=== PATIENT | male | born 1965 ===

== ENCOUNTER 2018-09-03 20:20 | Emergency (ER) | payer BC, OTHER ==
[2018-09-03 20:30] VITALS: BP 156/91
--- NOTE | 2018-09-03 20:31 | EDM.PDOC ---
ED HPI GENERAL MEDICAL PROBLEM - General Chief Complaint: Chest Pain Stated Complaint: [facility] Time Seen by Provider: 09/03/18 20:25 Source of Information: Reports: Patient - History of Present Illness INITIAL COMMENTS - FREE TEXT/NARRATIVE: Patient arrives by ambulance from [place], [place] for chest pain that started yesterday. Patient states that it is sharp and aching in nature and radiates down his left arm. Also occasionally has numbness to his third fourth and fifth digits on the left. Patient states that he took-325 mg aspirin total today, the last one being approximately 1 hour ago. Patient states that when he had his pain got worse and he was up working throughout the day at work yesterday and this afternoon at work. This did improve with rest. Denies any associated diaphoresis, dyspnea or feeling of impending doom. Patient denies any heartburn or GI symptoms. Denies a history of hypertension or heart disease. Patient has alcoholic cirrhosis and a history of hepatitis C which was treated with antiviral medication, 2 negative viral tests after treatment. Follows with GI at medical clinic in [place]. Medications daily are ASA 325 mg, omeprazole, lactulose and folic acid. He does have an albuterol inhaler but reports using this very rarely. Left Shoulder Pain Score (Numeric/FACES): 2 - Related Data Allergies Allergy/AdvReac Type Severity Reaction Status Date / Time No Known Allergies Allergy Verified 09/03/18 20:30 Home Meds: Home Meds Aspirin 325 mg PO DAILY 05/26/15 [History] Folic Acid 1 mg PO DAILY 05/26/15 [History] Lactulose 15 ml PO DAILY 05/26/15 [History] Omeprazole 20 mg PO DAILY 05/26/15 [History] Thiamine HCl [Vitamin B-1] 1 tab PO DAILY 09/03/18 [History] Past Medical History Other HEENT History: Wears glasses ED ROS GENERAL - Review of Systems Review Of Systems: See Below Constitutional: Denies: Fever, Chills, Malaise, Weakness, Fatigue, Decreased Appetite HEENT: Reports: No Symptoms Respiratory: Reports: No Symptoms Cardiovascular: Reports: Chest Pain. Denies: Blood Pressure Problem, Edema, Syncope GI/Abdominal: Reports: No Symptoms, Other (History of hepatitis C) Musculoskeletal: Reports: Other Skin: Reports: No Symptoms Neurological: Reports: No Symptoms ED EXAM, GENERAL - Physical Exam Exam: See Below Exam Limited By: No Limitations General Appearance: Alert, WD/WN, No Apparent Distress Respiratory/Chest: No Respiratory Distress, Lungs Clear, Normal Breath Sounds Cardiovascular: Regular Rate, Rhythm, No Murmur GI/Abdominal: Normal Bowel Sounds, Soft, Non-Tender Back Exam: Normal Inspection. No: Muscle Spasm Neurological: Alert, Oriented Psychiatric: Normal Affect, Normal Mood Skin Exam: Warm, Dry, Intact EKG INTERPRETATION EKG Date: 09/03/18 Time: 20:24 Rhythm: NSR Rate (Beats/Min): 77 Course - Vital Signs Last Recorded V/S: Last Vital Signs Temp 98 F 09/03/18 20:27 Pulse 85 09/03/18 20:27 Resp 18 09/03/18 20:27 BP 156/91 H 09/03/18 20:27 Pulse Ox 96 09/03/18 20:27 - Orders/Labs/Meds Orders: Active Orders 24 hr Category Date Time Status EKG 12 Lead [EKG Documentation Completion] [RC] STAT Care 09/03/18 20:25 Active CXR [Chest 2V] [CR] Stat Exams 09/03/18 20:26 Taken Labs: Laboratory Tests 09/03/18 09/03/18 09/03/18 Range/Units 20:25 20:25 20:25 WBC 8.03 (4.23-9.07) K/mm3 RBC 5.30 (4.63-6.08) M/mm3 Hgb 15.2 (13.7-17.5) gm/L Hct 47.1 (40.1-51.0) % MCV 88.9 (79.0-92.2) fl MCH 28.7 (25.7-32.2) pg MCHC 32.3 (32.2-35.5) g/dl RDW Std Deviation 42.3 (35.1-43.9) fL Plt Count 178 (163-337) K/mm3 MPV 10.0 (9.4-12.3) fl Neutrophils % (Manual) 77 H (40-60) % Band Neutrophils % 2 (0-10) % Lymphocytes % (Manual) 14 L (20-40) % Atypical Lymphs % 0 % Monocytes % (Manual) 5 (2-10) % Eosinophils % (Manual) 2 (0.8-7.0) % Basophils % (Manual) 0 L (0.2-1.2) Platelet Estimate Adequate RBC Morph Comment Normal PT (9.5-12.1) SECONDS INR Sodium 140 (136-145) mEq/L Potassium 4.4 (3.5-5.1) mEq/L Chloride 103 (98-107) mEq/L Carbon Dioxide 28 (21-32) mEq/L Anion Gap 13.4 (5-15) BUN 10 (7-18) mg/dL Creatinine 1.0 (0.7-1.3) mg/dL Est Cr Clr Drug Dosing 83.47 mL/min Estimated GFR (MDRD) > 60 (>60) mL/min BUN/Creatinine Ratio 10.0 L (14-18) Glucose 104 (74-106) mg/dL Calcium 9.9 (8.5-10.1) mg/dL Magnesium 2.0 (1.8-2.4) mg/dl Total Bilirubin 0.4 (0.2-1.0) mg/dL AST 25 (15-37) U/L ALT 36 (16-63) U/L Alkaline Phosphatase 94 (46-116) U/L Troponin I < 0.017 (0.00-0.056) ng/mL C-Reactive Protein 0.3 (<1.0) mg/dL Total Protein 8.2 (6.4-8.2) g/dl Albumin 4.2 (3.4-5.0) g/dl Globulin 4.0 gm/dL Albumin/Globulin Ratio 1.1 (1-2) 09/03/18 Range/Units 20:25 WBC (4.23-9.07) K/mm3 RBC (4.63-6.08) M/mm3 Hgb (13.7-17.5) gm/L Hct (40.1-51.0) % MCV (79.0-92.2) fl MCH (25.7-32.2) pg MCHC (32.2-35.5) g/dl RDW Std Deviation (35.1-43.9) fL Plt Count (163-337) K/mm3 MPV (9.4-12.3) fl Neutrophils % (Manual) (40-60) % Band Neutrophils % (0-10) % Lymphocytes % (Manual) (20-40) % Atypical Lymphs % % Monocytes % (Manual) (2-10) % Eosinophils % (Manual) (0.8-7.0) % Basophils % (Manual) (0.2-1.2) Platelet Estimate RBC Morph Comment PT 11.0 (9.5-12.1) SECONDS INR 1.01 Sodium (136-145) mEq/L Potassium (3.5-5.1) mEq/L Chloride (98-107) mEq/L Carbon Dioxide (21-32) mEq/L Anion Gap (5-15) BUN (7-18) mg/dL Creatinine (0.7-1.3) mg/dL Est Cr Clr Drug Dosing mL/min Estimated GFR (MDRD) (>60) mL/min BUN/Creatinine Ratio (14-18) Glucose (74-106) mg/dL Calcium (8.5-10.1) mg/dL Magnesium (1.8-2.4) mg/dl Total Bilirubin (0.2-1.0) mg/dL AST (15-37) U/L ALT (16-63) U/L Alkaline Phosphatase (46-116) U/L Troponin I (0.00-0.056) ng/mL C-Reactive Protein (<1.0) mg/dL Total Protein (6.4-8.2) g/dl Albumin (3.4-5.0) g/dl Globulin gm/dL Albumin/Globulin Ratio (1-2) - Re-Assessments/Exams Free Text/Narrative Re-Assessment/Exam: Patient's pain had resolved by the time he arrived in the ER. It had been intermittent over the last 24 hours prior but resolved with aspirin. Mild emphysematous changes on x-ray, no other pathology noted. WBC 8030 was 77% neutrophils and 2% bands. CMP is unremarkable. CRP 0.3. Troponin is negative. Patient will be discharged home. He will follow-up with his primary provider to discuss the possibility of a stress test which I recommend. He will return to the emergency department for any new or worsening symptoms. 09/03/18 21:43 Departure - Departure Time of Disposition: 21:41 Disposition: Home, Self-Care 01 Condition: Good Clinical Impression: Pain of left upper extremity Chest pain Qualifiers: Chest pain type: unspecified Qualified Code(s): R07.9 - Chest pain, unspecified Instructions: Exercise Stress Test, [id number], Nonspecific Chest Pain, Easy- to-Read Referrals: Cortney Oconnor PA-C [Physician Instrument Mechanics Supervisor] - Forms: ED Department Discharge Additional Instructions: You were evaluated in the emergency room today for chest pain. EKG and cardiac enzymes were negative. I still recommend that you take it easy the next few days, follow up with your primary provider to discuss if a stress test would be appropriate for you. Certainly if you have any return of symptoms do not hesitate to return to the emergency department. - My Orders Last 24 Hours: My Active Orders 09/03/18 20:25 EKG 12 Lead [EKG Documentation Completion] [RC] STAT 09/03/18 20:26 CXR [Chest 2V] [CR] Stat - Assessment/Plan Last 24 Hours: My Active Orders 09/03/18 20:25 EKG 12 Lead [EKG Documentation Completion] [RC] STAT 09/03/18 20:26 CXR [Chest 2V] [CR] Stat
--- NOTE | 2018-09-04 18:15 | CR ---
Chest: Two views of the chest were obtained. Comparison: Prior chest x-ray of 04/15/18. Heart size and mediastinum are normal. Lung markings are mildly increased which appear to be stable. Lungs otherwise are clear. Diaphragms are slightly flattened on the lateral view suggesting mild emphysematous change. Slight degenerative spurring is noted within the lower thoracic spine. Surgical clips are seen within the upper abdomen. Impression: 1. Mild increased lung markings. Most of this appears to be chronic. 2. Findings suggesting emphysematous change. 3. Nothing acute is identified. Diagnostic code #2
== END 2018-09-03 22:02 | disposition home or self-care (01) ==
LOC: JD.ED 20:20
DX: R07.9 Chest pain, unspecified (principal); M79.602 Pain in left arm; Z79.82 Long term (current) use of aspirin
CPT/HCPCS: 36415; 71046; 71046-26; 80053; 83735; 84484; 85007; 85027; 85610; 86140; 93005; 93010; 99284; 99285-25

== ENCOUNTER 2021-08-16 11:16 | Emergency (ER) | payer OTHER, BC ==
[2021-08-16 11:44] VITALS: BP 160/95; PULSE 81
[2021-08-16] MEDS ORDERED: Sodium Chloride 0.9% 10 ML Syringe FLUSH PRN (12:01)
== END 2021-08-16 14:03 | disposition home or self-care (01) ==
LOC: JD.ED 11:16
DX: R04.2 Hemoptysis (principal); K21.9 Gastro-esophageal reflux disease without esophagitis; Z79.82 Long term (current) use of aspirin; Z79.899 Other long term (current) drug therapy; Z72.0 Tobacco use
CPT/HCPCS: 36415; 71046; 71046-26; 80053; 85025; 85379; 85610; 85730; 99283-25; 99285